=== PATIENT | male | born 1960 | race Caucasian/White ===

== ENCOUNTER 2023-12-07 06:07 | Day surgery (SDC) | payer MEDICARE ==
[2023-12-07] MEDS ORDERED: Sodium Chloride 0.9% 1,000 ML IV SCH ×2 (06:45→07:15)
[2023-12-07] MEDS ORDERED: Midazolam 1 MG/ML 2 ML SDV ONE (07:13)
[2023-12-07] MEDS ORDERED: Propofol 200 MG/20 ML SDV ONE ×2 (07:13→07:56)
[2023-12-07] MEDS ORDERED: fentaNYL 50 MCG/ML SDV ONE (07:13)
[2023-12-07 09:15] VITALS: BP 137/74; PULSE 53
== END 2023-12-07 09:21 | disposition home or self-care (01) ==
LOC: JP.SDS 06:07
PROVIDERS: ATTEND Surgery
DX: Z12.11 Encounter for screening for malignant neoplasm of colon (principal); K57.30 Diverticulosis of large intestine without perforation or abscess without bleeding
CPT/HCPCS: J2250; J2704; J3010; J7030